=== PATIENT | male | born 1965 | race Caucasian/White ===

== ENCOUNTER 2022-07-15 03:47 | Emergency (ER) | payer OTHER, MEDICAID ==
[~2022-07-15] VITALS: Ht 167.6 cm; Wt 77.1 kg
[~2022-07-15 03:47] MED LIST: BECL8.7A5 INH; DIVA500T4 PO; HYDR25TA4 PO; METO25TA3 PO; SIMV-343 PO; VENL75CA PO
[2022-07-15 04:02] VITALS: BP_SYST 137
--- NOTE | 2022-07-15 04:08 | NUR ---
Placed in room 1 . Placed on security monitor, blood pressure machine and pulse oximeter. To gown for exam. Side rails up. Report given to MICKIE PEÑA(REG).
[2022-07-15] MEDS ORDERED: DEXAMETHASONE SOD PHOSPHATE 10 MG/ML VIAL IVP ONE (04:15)
[2022-07-15] MEDS ORDERED: MORPHINE 4 MG INJ. 4 MG/ML VIAL IVP ONE (04:15)
[2022-07-15] MEDS ORDERED: LORazepam 2 MG/ML VIAL IVP ONE (04:15)
--- NOTE | 2022-07-15 04:20 | NUR ---
First contact. Pt c/o right arm pain x 3 days. 05/08. Progressively getting worst.
--- NOTE | 2022-07-15 04:40 | NUR ---
Pt off to CT at this time.
[2022-07-15 06:03] VITALS: BP_SYST 138
[2022-07-15] MEDS ORDERED: HYDR-3917 PO ×2 (06:27→06:51)
[2022-07-15] MEDS ORDERED: PRED20TA PO ×2 (06:27→06:51)
[2022-07-15] MEDS ORDERED: VAL2 PO ×2 (06:27→06:51)
--- NOTE | 2022-07-15 06:40 | NUR ---
Patient given written and verbal discharge instructions and verbalizes understanding. ER MD discussed with patient the results and treatment provided. Patient in stable condition. ID arm band removed. IV catheter removed intact and dressing applied, no active bleeding. Rx of Hydrocodone, prednisone, & valium given. Patient educated on pain management and to follow up with PMD. Opportunity for questions provided and answered. Medication side effect fact sheet provided.
== END 2022-07-15 06:40 | disposition home or self-care (01) ==
LOC: SED 03:47
DX: M54.12 Radiculopathy, cervical region (principal); M79.601 Pain in right arm; J45.909 Unspecified asthma, uncomplicated; I11.0 Hypertensive heart disease with heart failure; I50.9 Heart failure, unspecified; Z88.6 Allergy status to analgesic agent; Z79.899 Other long term (current) drug therapy
CPT/HCPCS: 99284; 96374; 72125; 96375; 76376; J1100; J2060; J2270

== ENCOUNTER 2022-07-22 12:02 | Emergency (ER) | payer MEDICARE, MEDICAID ==
[~2022-07-22] VITALS: Ht 167.6 cm; Wt 74.8 kg
[~2022-07-22 12:02] MED LIST changes: +HYDR-3917 PO; +PRED20TA PO; +VAL2 PO
[2022-07-22 12:12] VITALS: BP_SYST 160
--- NOTE | 2022-07-22 12:20 | NUR ---
Patient to ER bed H1 to gown for evaluation. Side rails up. Report given to Tere PEÑA .
--- NOTE | 2022-07-22 12:29 | NUR ---
Pt bib from home, CC right arm pain. unknown relation. Pt denies trauma. Pt is aaox4, pt with neourological disorder seizures, tremors, pt pain uncontrolled, bed pads in place for safety measures. is bedside. Pt is out of pain medication from recent visit.
[2022-07-22] MEDS ORDERED: LORazepam 2 MG/ML VIAL IVP ONE (12:45)
[2022-07-22] MEDS ORDERED: methylPREDNISolone SOD SUCC/PF 62.5 MG/ML VIAL IVP ONE (12:45)
[2022-07-22] MEDS ORDERED: MORPHINE 4 MG INJ. 4 MG/ML VIAL IVP ONE (12:45)
[2022-07-22] MEDS ORDERED: VAL2 PO ×2 (13:55→13:59)
[2022-07-22] MEDS ORDERED: PRED20TA PO (13:55)
[2022-07-22] MEDS ORDERED: HYDR-3917 PO ×2 (13:55→13:59)
[2022-07-22 17:58] VITALS: BP_SYST 148
== END 2022-07-22 17:58 | disposition home or self-care (01) ==
LOC: SED 12:02
DX: M54.12 Radiculopathy, cervical region (principal); M25.511 Pain in right shoulder; R20.2 Paresthesia of skin; J45.909 Unspecified asthma, uncomplicated; E78.5 Hyperlipidemia, unspecified; I10 Essential (primary) hypertension; Z88.6 Allergy status to analgesic agent; Z79.899 Other long term (current) drug therapy
CPT/HCPCS: 99284; 96374; 96375; J2060; J2930; J2270

== ENCOUNTER 2022-09-23 14:24 | Emergency (ER) | payer OTHER, MEDICAID ==
[~2022-09-23] VITALS: Ht 167.6 cm; Wt 74.8 kg
[2022-09-23 14:25] VITALS: BP_SYST 147
--- NOTE | 2022-09-23 14:25 | NUR ---
Patient triaged and placed in waiting room. VSS and patient appears in no acute distress at this time. Accompanied by , awaiting available bed, and MD notified of need for MSE.
[2022-09-23] MEDS ORDERED: NEU300 PO (14:37)
--- NOTE | 2022-09-23 14:50 | NUR ---
PT BROUGHT INTO BED ##8 VIA WHEELCHAIR, ASSISTED TO BED AND REPORT GIVEN TO FRANK
--- NOTE | 2022-09-23 14:51 | NUR ---
ER at bedside examining patient.
--- NOTE | 2022-09-23 14:55 | NUR ---
PT BIB IN WHEELCHAIR TAKEN TO BED 8. PT IS A&Ox4, ABLE TO MAKE NEEDS KNOWN. PT C/O RIGHT ARM PAIN. PT RATES PAIN 10/10. PT IS SHAKING AND ANXIOUS EVIDENCE BY HITTING SELF ON LEG. PT'S STATES PT HAS A PINCHED NERVE AT C7 AND T1, A DENGENERATIVE DISC AT C6. PT HAS A HISTORY OF SEIZURES AND HTN. BILATERAL BEDRAILS UP AND SEIZURE PADDING APPLIED.
[2022-09-23] MEDS ORDERED: MORPHINE 4 MG INJ. 4 MG/ML VIAL IVP ONE (15:00)
[2022-09-23] MEDS ORDERED: levETIRAcetam 500 MG TABLET PO ONE (15:00)
[2022-09-23 15:55] LABS: BASOPHILS % (AUTO) 0.2 % (0.0-2.0); EOSINOPHILS # (AUTO) 0.1 K/uL (0.0-0.4); EOSINOPHILS % (AUTO) 1.7 % (0.0-4.0); HEMATOCRIT 41.7 % (36-54); HEMOGLOBIN 14.2 g/dL (14.0-18.0); LYMPHOCYTES # (AUTO) 2.1 K/uL (1.0-5.5); MEAN CORPUSCULAR HEMOGLOBIN 31 pg (27-31); MEAN CORPUSCULAR HGB CONC 34 % (32-36); MEAN CORPUSCULAR VOLUME 92 fL (79.0-98.0); MONOCYTES # (AUTO) 0.7 K/uL (0.0-1.0); MONOCYTES % (AUTO) 10.6 % (1.7-9.3); NEUTROPHILS # (AUTO) 3.6 K/uL (1.8-7.7); NEUTROPHILS % (AUTO) 55.5 % (40.0-70.0); PLATELET COUNT (AUTO) 241 K/uL (130-430); RED BLOOD CELL COUNT(AUTO) 4.54 MIL/uL (4.2-6.2); RED CELL DISTRIBUTION WIDTH 12.6 % (9.0-15.0); WHITE BLOOD COUNT (AUTO) 6.5 K/uL (4.8-10.8)
[2022-09-23 16:04] LABS: CALCIUM 8.7 mg/dL (8.4-11.0); CREATININE 1.02 mg/dL (0.55-1.30)
[2022-09-23 16:09] LABS: ALBUMIN 4.1 g/dL (3.4-4.8); TOTAL BILIRUBIN 0.3 mg/dL (0.0-1.0)
[2022-09-23] MEDS ORDERED: HYDR-3917 PO (16:32)
[2022-09-23] MEDS ORDERED: IBUP-1971 PO (16:32)
--- NOTE | 2022-09-23 16:47 | NUR ---
Patient given written and verbal discharge instructions and verbalizes understanding. NELDA LOWE MD discussed with patient the results and treatment provided. Patient in stable condition. ID arm band removed. Rx of NORCO AND MOTRIN given. Patient educated on pain management and to follow up with PMD. Pain Scale 0/10. Opportunity for questions provided and answered. Medication side effect fact sheet provided.
[2022-09-23 16:48] VITALS: BP_SYST 109
== END 2022-09-23 16:47 | disposition home or self-care (01) ==
LOC: SED 14:24
DX: M54.12 Radiculopathy, cervical region (principal); R56.9 Unspecified convulsions; J45.909 Unspecified asthma, uncomplicated; E78.5 Hyperlipidemia, unspecified; I10 Essential (primary) hypertension; Z88.6 Allergy status to analgesic agent; Z79.899 Other long term (current) drug therapy
CPT/HCPCS: 99283; 80053; 85025; 36415; 96372; 83605; J2270

== ENCOUNTER 2023-06-06 15:09 | Emergency (ER) | payer OTHER, MEDICAID ==
[~2023-06-06] VITALS: Ht 167.6 cm; Wt 68.0 kg
[~2023-06-06 15:09] MED LIST changes: +IBUP-1971 PO; +NEU300 PO
[2023-06-06 15:12] VITALS: BP_SYST 136; PULSE 84; RESP 18; TEMP 98.5; O2SAT 99
[2023-06-06] MEDS ORDERED: fentaNYL CITRATE/PF 100 MCG/2 ML AMP IM ONE (15:45)
[2023-06-06] MEDS ORDERED: OXYC-128 PO (16:57)
[2023-06-06 17:14] VITALS: BP_SYST 158; PULSE 79; RESP 17; TEMP 97.2; O2SAT 99
== END 2023-06-06 17:14 | disposition home or self-care (01) ==
LOC: SED 15:09
DX: M54.12 Radiculopathy, cervical region (principal); G89.29 Other chronic pain; M25.512 Pain in left shoulder; J45.909 Unspecified asthma, uncomplicated; I10 Essential (primary) hypertension; E78.5 Hyperlipidemia, unspecified; Z88.6 Allergy status to analgesic agent; Z79.899 Other long term (current) drug therapy
CPT/HCPCS: 99283; 96372; J3010

== ENCOUNTER 2023-11-04 12:49 | Emergency (ER) | payer OTHER, MEDICAID ==
[~2023-11-04] VITALS: Ht 167.6 cm; Wt 67.6 kg
[~2023-11-04 12:49] MED LIST changes: +OXYC-128 PO
[2023-11-04 13:21] VITALS: BP_SYST 154; PULSE 90; RESP 18; TEMP 98.1; O2SAT 99
[2023-11-04] MEDS: LORazepam 2 MG/ML VIAL IVP ONE (14:23)
[2023-11-04] MEDS: MORPHINE 4 MG INJ. 4 MG/ML VIAL IVP ONE (14:23)
[2023-11-04 15:24] VITALS: BP_SYST 126; PULSE 81; RESP 24; TEMP 98.1; O2SAT 97
== END 2023-11-04 15:21 | disposition home or self-care (01) ==
LOC: SED 12:49
DX: M54.2 Cervicalgia (principal); G89.29 Other chronic pain; J45.909 Unspecified asthma, uncomplicated; I10 Essential (primary) hypertension; Z88.6 Allergy status to analgesic agent; Z79.899 Other long term (current) drug therapy
CPT/HCPCS: 99284; 96374; 96375; J2060; J2270

== ENCOUNTER 2024-01-05 02:40 | Emergency (ER) | payer OTHER, MEDICAID ==
[~2024-01-05] VITALS: Ht 167.6 cm; Wt 70.3 kg
[2024-01-05 02:43] VITALS: BP_SYST 141; PULSE 87; RESP 18; TEMP 97.8; O2SAT 99
[2024-01-05] MEDS: KETOROLAC TROMETHAMINE 30 MG VIAL IM ONE (03:15)
[2024-01-05] MEDS ORDERED: DIAZEPAM 5 MG TABLET (VALIUM) PO ONE (03:15)
[2024-01-05] MEDS ORDERED: ACETAMINOPHEN 500 MG TABLET ONE (03:21)
[2024-01-05 03:42] LABS: BASOPHILS % (AUTO) 0.2 % (0.0-2.0); EOSINOPHILS % (AUTO) 0.6 % (0.0-4.0); HEMATOCRIT 36.6 % (36-54); HEMOGLOBIN 12.9 g/dL (14.0-18.0); LYMPHOCYTES # (AUTO) 1.3 K/uL (1.0-5.5); MEAN CORPUSCULAR HEMOGLOBIN 32 pg (27-31); MEAN CORPUSCULAR HGB CONC 35 % (32-36); MEAN CORPUSCULAR VOLUME 89 fL (79.0-98.0); MONOCYTES # (AUTO) 0.8 K/uL (0.0-1.0); MONOCYTES % (AUTO) 13.6 % (1.7-9.3); NEUTROPHILS # (AUTO) 3.5 K/uL (1.8-7.7); NEUTROPHILS % (AUTO) 62.6 % (40.0-70.0); PLATELET COUNT (AUTO) 284 K/uL (130-430); RED CELL DISTRIBUTION WIDTH 12.7 % (9.0-15.0); WHITE BLOOD COUNT (AUTO) 5.5 K/uL (4.8-10.8)
[2024-01-05] MEDS: DIAZEPAM 5 MG TABLET (VALIUM) PO ONE (03:43)
[2024-01-05] MEDS: ACETAMINOPHEN 500 MG TABLET PO ONE (03:44)
[2024-01-05 04:19] LABS: CALCIUM 8.6 mg/dL (8.4-11.0); CREATININE 0.96 mg/dL (0.55-1.30); POTASSIUM 3.8 mmol/L (3.5-5.1)
[2024-01-05] MEDS: DIAZEPAM 10 MG/2 ML DISP.SYRIN IVP ONE (04:19)
[2024-01-05 05:35] VITALS: BP_SYST 132; PULSE 76; RESP 18; TEMP 97.8; O2SAT 98
== END 2024-01-05 05:20 | disposition home or self-care (01) ==
LOC: SED 02:40
DX: G89.29 Other chronic pain (principal); M25.512 Pain in left shoulder; G40.909 Epilepsy, unspecified, not intractable, without status epilepticus; E87.1 Hypo-osmolality and hyponatremia; J45.909 Unspecified asthma, uncomplicated; E78.5 Hyperlipidemia, unspecified; I10 Essential (primary) hypertension; F41.9 Anxiety disorder, unspecified; Z88.6 Allergy status to analgesic agent; Z79.899 Other long term (current) drug therapy; Z79.2 Long term (current) use of antibiotics
CPT/HCPCS: 99284; 80048; 85025; 36415; 73030; 96372; J1885